=== PATIENT | female | born 1955 | race African-American/Black ===

== ENCOUNTER 2024-07-22 12:35 | Emergency (ER) | payer OTHER ==
[2024-07-22 13:03] VITALS: TEMP 98; BMI 22.6
[2024-07-22 14:03] LABS: BASO % 1.3 % (0-2.0); EOS % 0.8 % (0-4.5); HEMATOCRIT 36.4 % (32.4-45.2); MCH 28.2 pg (25.7-33.7); MCHC 32.9 g/dl (32.0-36.0); MEAN CELL VOLUME 85.5 fl (80-96); MEAN PLT VOLUME 9.1 fl (7.5-11.1); MONO % 12.8 % (3.8-10.2); NEUT % 48.1 % (42.8-82.8); PLATELET COUNT 251 10^3/uL (134-434); RBC 4.26 M/mm3 (3.60-5.2); WHITE BLOOD COUNT 2.9 K/mm3 (4.0-10.0)
[2024-07-22] MEDS ORDERED: ONDANSETRON *ODT* 4 MG TABLET ONE (14:38)
[2024-07-22] MEDS: ONDANSETRON *ODT* 4 MG TABLET SL ONE (14:48)
[2024-07-22 15:04] LABS: BLOOD UREA NITROGEN 12.7 mg/dL (7-18)
[2024-07-22 15:06] LABS: CREATININE 0.7 mg/dL (0.55-1.3)
[2024-07-22 15:07] LABS: BILIRUBIN,TOTAL 1.2 mg/dL (0.2-1); TOT PROT 5.3 g/dl (6.4-8.2)
[2024-07-22 15:09] LABS: MAGNESIUM 1.9 mg/dL (1.8-2.4)
[2024-07-22 15:17] LABS: HIV INTERPRETATION NEGATIVE (NEGATIVE)
[2024-07-22 16:01] LABS: EPI CELLS 14 /uL (0-25.1); HYALINE CASTS 2 /uL (0-3.1); PH,URINE 5.5 (5.0-8.0); URINE APPEARANCE CLEAR; URINE BACTERIA 36 /uL (0-1359); URINE BILIRUBIN 1+ (NEGATIVE); URINE COLOR DK YELLOW; URINE GLUCOSE (UA) NEGATIVE (NEGATIVE); URINE KETONE TRACE (NEGATIVE); URINE LEUK ESTERASE 1+ (NEGATIVE); URINE NITRITE NEGATIVE (NEGATIVE); URINE PROTEIN NEGATIVE (NEGATIVE); URINE RBC 9 /uL (0-23.9); URINE WBC 17 /uL (0-25.8)
[2024-07-22 16:38] VITALS: BP 150/77; PULSE 70; RESP 14
== END 2024-07-22 16:38 | disposition home or self-care (01) ==
LOC: JER 12:35
DX: R53.1 Weakness (principal); R63.0 Anorexia; R11.2 Nausea with vomiting, unspecified; R05.9 Cough, unspecified; Z20.822 Contact with and (suspected) exposure to COVID-19
CPT/HCPCS: 0241U-QW; 36415; 71046-TC-FY; 80053; 81003; 83735; 84484; 85025; 86803; 87086; 87389; 93005; 93010; 99285-25; Q0162